=== PATIENT | female | born 1935 | race Caucasian/White ===

== ENCOUNTER 2016-10-19 19:30 | Emergency (ER) | payer MEDICARE ==
[~2016-10-19] VITALS: Ht 162.6 cm; Wt 65.0 kg
--- NOTE | 2016-10-19 20:40 | NUR ---
Pt ambulates to bathroom with standby assist. Urine specimen collected. Pt assisted back to bed. Urine sent to lab.
[2016-10-19] MEDS ORDERED: HYDROmorphone 1 MG/ML (DILAUDID) SYRINGE IM ONE (20:50)
[2016-10-19 20:52] LABS: BILIRUBIN,URINE Negative (Negative); CLARITY,URINE Clear; COLOR,URINE Yellow; GLUCOSE, URINE (UA) Negative (Negative); LEUKOCYTE ESTERASE ,URINE 1+ (Negative); UROBILINOGEN,URINE 0.2 mg/dL (0.2-1.0)
[2016-10-19 20:56] LABS: URINE CENTRIFUGED VOLUME <10mL Unspun
--- NOTE | 2016-10-19 21:59 | NUR ---
Pt c/o feeling dizzy. Request meclizine. Dr. Walsh notified.
[2016-10-19] MEDS ORDERED: MECLIZINE 25 MG (ANTIVERT) TABLET PO ONE (22:00)
[2016-10-19] MEDS ORDERED: ED- HYDROcodone/ACETAMINOPHEN 5MG/325MG (NORCO) 6 TABLETS/BTL PO ONE (22:25)
[2016-10-19 22:40] LABS: RBC,URINE 0-2 /HPF
[2016-10-19 23:17] VITALS: BP 144/80
== END 2016-10-19 22:35 | disposition home or self-care (01) ==
LOC: ED 19:31
DX: S20.412A Abrasion of left back wall of thorax, initial encounter (principal); W18.39XA Other fall on same level, initial encounter; Y93.K9 Activity, other involving animal care; N39.0 Urinary tract infection, site not specified; B96.20 Unspecified Escherichia coli [E. coli] as the cause of diseases classified elsewhere
CPT/HCPCS: 71101; 81003; 81015; 87077; 87088; 87186; 96372; 99282; A9270; J1170; 99283

== ENCOUNTER → 2016-10-19 | Outpatient (CLI) | payer MEDICARE | LOC: EMS 19:15 | PROVIDERS: ATTEND Emergency Medicine | DX: S20.412A Abrasion of left back wall of thorax, initial encounter (principal); W18.39XA Other fall on same level, initial encounter; Y93.K9 Activity, other involving animal care; Y92.019 Unspecified place in single-family (private) house as the place of occurrence of the external cause ==

== ENCOUNTER → 2017-01-16 | Outpatient (CLI) | payer MEDICARE ==
[~2017-01-16] MED LIST: BIOT25006 PO; CARB200T PO; CYAN100T3 PO; ESTR0.3T PO; HYDR-3702 PO; LEVO25TA2 PO; LRT10T PO; MECL12.518 PO; MMT17NA; POTA20LI2 PO; POTA99TA7 PO
[2017-01-16 10:23] LABS: BASOPHILS % (AUTO) 1 % (0-2); EOSINOPHILS # (AUTO) 0.1 10^3uL; EOSINOPHILS % (AUTO) 3 % (0-4); LYMPHOCYTES # (AUTO) 1.3 X10^3; MEAN CORPUSCULAR HEMOGLOBIN 28.7 PG (26.0-34.0); MEAN CORPUSCULAR HGB CONC 33.1 g/dL (31.0-37.0); MEAN CORPUSCULAR VOLUME 87 FL (80-100); MEAN PLATELET VOLUME 11.5 FL (6.0-9.5); MONOCYTES # (AUTO) 0.5 X10^3; MONOCYTES % (AUTO) 9 % (3-11); NEUTROPHILS # (AUTO) 3.4 X10^3; NEUTROPHILS % (AUTO) 63 % (51-67); PLATELET COUNT 219 10^3uL (150-450); WHITE BLOOD COUNT 5.32 10^3uL (4.0-11.0)
[2017-01-16 10:50] LABS: ALBUMIN 4.3 g/dL (3.4-5.0); ANION GAP 15.7 MEQ/L (3-15); CALCULATED IONIZED CALCIUM 3.9 mg/dL (3.8-4.6); MAGNESIUM* 2.3 mg/dL (1.6-2.3); TOTAL PROTEIN 7.8 g/dL (6.4-8.5)
== END ==
LOC: LAB 09:03
PROVIDERS: ATTEND Internal Medicine Hematology & Oncology
DX: C83.00 Small cell B-cell lymphoma, unspecified site (principal)
CPT/HCPCS: 36415; 80053; 83615; 83735; 84100; 85025